=== PATIENT | female | born 1955 | race African-American/Black ===

== ENCOUNTER → 2017-10-22 | Outpatient (CLI) | payer OTHER ==
[~2017-10-22] MED LIST: DIOVAN HCT 3201 EACH PO; DOXAZOSIN MESYLA8 MG PO; ECOTRIN81 MG PO; HYDRALAZINE HCL25 MG PO; METOPROLOL SUCC50 MG PO; SPIRONOLACTONE25 MG PO
--- NOTE | 2017-10-22 19:18 | Diagnostic Imaging Report ---
PROCEDURE: CT CHEST WITHOUT CONTRAST CT scan of the chest WITHOUT intravenous contrast, using low dose, nodule protocol. TECHNIQUE: The chest was scanned utilizing a multidetector helical scanner from the apex to the level of the adrenal glands. No IV contrast was administered per low dose nodule protocol Coronal and sagittal multiplanar reformations were obtained. COMPARISON: [facility], CT, CT CHEST WO, 01/03/2017, 10:36. INDICATIONS: LUNG NODULE FOLLOW UP, HEART MURMUR FINDINGS: Lines/tubes: None. Lungs and Airways: Stable 4-5 mm nodular density in the left upper lobe (series 3, image 29). No other pulmonary nodules, no masses or consolidation. Linear opacities in the lingula (series 3, image 56) anterior left lower lobe (series 3, image 85) and mediastinal right lower lobe (series 3, image 85), consistent with scarring. Airways are clear, without endobronchial lesions. Pleura: No effusion, or pneumothorax Heart and mediastinum: High attenuation 1.7 x 2.0 x 2.7 cm structure in the right upper mediastinum appears to be contiguous with the right lower thyroid lobe, is stable since the prior exam, and likely represents a thyroid nodule or substernal goiter (series 2, image 15, and coronal image 59).. Mild to moderate cardiomegaly. Small pericardial effusion. The aorta is non-aneurysmal. The main pulmonary artery is enlarged, measuring approximately 3.2 cm. Lymph nodes: No mediastinal, hilar, or axillary adenopathy. Abdomen: Limited views of the upper abdomen show no abnormality within the visualized liver, spleen, pancreas, or right kidney. Partially visualized, relatively stable 4.6 x 4.6 cm fluid density lesion in the superior pole of the left kidney, consistent with a simple cyst (series 2, image 119). Cholecystectomy clips. The adrenal glands are normal. Bones: No aggressive lytic lesions. Degenerative changes in the thoracic spine. Soft tissues are unremarkable. IMPRESSION: 1. stable 4-5 mm nodule in the left upper lobe since exam dated 01/03/2017. No further followup is indicated per Fleischner Society 2017 guidelines. 2. Stable scarring in the lingula and bilateral lower lobes. No consolidation or effusion. 3. Mild to moderate cardiomegaly with small pericardial effusion. 4. Stable 2.7 cm high attenuation structure which appears to be contiguous with the inferior pole of the right thyroid lobe and likely represents an exophytic thyroid nodule or substernal goiter. Dedicated thyroid ultrasound may be obtained for further evaluation. 5. Mild enlargement of the pulmonary artery, likely reflecting pulmonary hypertension. Jin Mead M.D. Dictated by: Jin Mead M.D. on 10/22/2017 at 19:28 Electronically approved by: Jin Mead M.D. on 10/22/2017 at 19:28
== END ==
LOC: CT 14:54
PROVIDERS: ATTEND Internal Medicine Interventional Cardiology
DX: R91.1 Solitary pulmonary nodule (principal)
CPT/HCPCS: 71250